=== PATIENT | male | born 1935 | race Caucasian/White ===

== ENCOUNTER 2018-07-02 13:23 | Day surgery (SDC) | payer MEDICARE, OTHER ==
[~2018-07-02 13:23] MED LIST: ALBU3IS INH; ALBU90OI INH; ALOE VERA JUICE PO; ASPI81CH; ASPI81CH PO; ASPI81EC PO; ATEN25 PO; ATEN50 PO; Arthritis Pai42.5 GM TOP; BUDE6HFA INH; CALCA500CH PO; CEPH500 PO; CHOL10002 PO; COMBIVENT RESPIM4 GM; CYCL10; DILT120 PO; DILT90 PO; DOC250 PO; FERR325 PO; GUAI600T33 PO; HYCOSAMINE; HYDACE5 PO; IBUP400 PO; INDO25 PO; KETO10 PO; LEVFLO500 PO; METF500 PO; METPRE4DP PO; MULVITB&C PO; Mucinex D 1,201 EACH; NAPR250; NITR.4SL SL; Norco 5-325 Ta1 EACH PO; OXYACE5T PO; Omeprazole20 M1 PO; PERIDEX15 ML PO; PRAV20; PRED10 PO; PRED20 PO; Percocet 5-3251 EACH PO; RANI150 PO; Robaxin500 MG PO; SALICYLATE/MENTHOL/C TOP; SIMV40 PO; TIOT18 IH; TIOT18 INH; VITAMIN B100
[2018-07-06 15:12] LABS: Performing Lab SYMBIODX; Test Name TISSUE BLOCK
== END 2018-07-02 22:52 | disposition home or self-care (01) ==
LOC: US 13:23
PROVIDERS: Internal Medicine Critical Care Medicine
DX: R22.2 Localized swelling, mass and lump, trunk (principal); C77.0 Secondary and unspecified malignant neoplasm of lymph nodes of head, face and neck
CPT/HCPCS: 38505; 76942; 88305; 88342

== ENCOUNTER 2018-09-17 11:48 | Inpatient (IN) | payer MEDICARE, OTHER ==
[~2018-09-17] VITALS: Ht 167.6 cm; Wt 70.7 kg
[~2018-09-17 11:48] MED LIST changes: -METF500 PO; +METF500C PO
[2018-09-17 12:29] LABS: BASOPHILS ABSOLUTE AUTO 0.02 K/mm3 (0.00-0.23); BASOPHILS PERCENT AUTO 0 % (0-2); EOSINOPHILS ABSOLUTE AUTO 0.11 K/mm3 (0.00-0.68); EOSINOPHILS PERCENT AUTO 1 % (0-6); Hemoglobin 12.3 g/dL (13.5-17.5); IMMATURE GRAN ABSOLUTE AUTO 0.03 K/mm3 (0.00-0.10); IMMATURE GRAN PERCENT AUTO 0 % (0-1); LYMPHOCYTES ABSOLUTE AUTO 1.29 K/mm3 (0.84-5.20); LYMPHOCYTES PERCENT AUTO 15 % (21-46); MONOCYTES ABSOLUTE AUTO 0.87 K/mm3 (0.16-1.47); MONOCYTES PERCENT AUTO 10 % (4-13); Mean Corpuscular HGB 26.2 pg (26.0-34.0); Mean Corpuscular HGB Conc 30.8 g/dL (31.5-36.5); Mean Corpuscular Volume 85 fL (80-100); Mean Platelet Volume 9.5 fL (9.1-12.4); NEUTROPHILS ABSOLUTE AUTO 6.08 K/mm3 (1.96-9.15); NEUTROPHILS PERCENT AUTO 72 % (41-73); Platelet Count 234 K/mm3 (150-400); RDW Coefficient Variation 19.7 % (11.7-14.2); RDW Standard Deviation 61.1 fL (35.1-46.3); Red Blood Cell Count 4.69 M/mm3 (4.30-5.90)
[2018-09-17 12:49] LABS: Alanine Aminotransfer (ALT/SGP 19 U/L (12-78); Albumin, Blood 3.3 g/dL (3.4-5.0); Albumin/Globulin Ratio 0.7 (0.8-1.8); Alk Phos 116 U/L (50-136); Anion Gap 7 mmol/L (6-16); Aspartate Aminotrans (AST/SGOT 14 U/L (12-37); Bilirubin, Total 0.4 mg/dL (0.1-1.0); Blood Urea Nitrogen 12 mg/dL (8-24); Bun/Creatinine Ratio 14.9 (12.0-20.0); CO2, Blood 31 mmol/L (21-32); Calcium, Blood 8.9 mg/dL (8.5-10.1); Chloride, Blood 99 mmol/L (98-108); Globulin, Blood 4.5 g/dL (2.2-4.0); Glomerular Filtration Rate >60 (60-); Glucose, Blood 113 mg/dL (70-99); Potassium, Blood 3.8 mmol/L (3.5-5.5); Sodium, Blood 137 mmol/L (136-145); Total Protein, Blood 7.8 g/dL (6.4-8.2); Troponin I <0.015 ng/mL (0.000-0.040)
[2018-09-17 19:46] LABS: International Normalized Ratio 1.05; Prothrombin Time Results 10.8 Sec (9.7-11.5)
[2018-09-17 21:11] LABS: CPK Creatine Kinase 85 U/L (39-308); Troponin I <0.015 ng/mL (0.000-0.040)
[2018-09-18 05:27] LABS: Hematocrit 35.8 % (37.0-53.0); Hemoglobin 11.3 g/dL (13.5-17.5); Mean Corpuscular HGB 26.8 pg (26.0-34.0); Mean Corpuscular HGB Conc 31.6 g/dL (31.5-36.5); Mean Corpuscular Volume 85 fL (80-100); Mean Platelet Volume 9.6 fL (9.1-12.4); Platelet Count 234 K/mm3 (150-400); RDW Coefficient Variation 19.2 % (11.7-14.2); RDW Standard Deviation 59.8 fL (35.1-46.3); Red Blood Cell Count 4.21 M/mm3 (4.30-5.90); White Blood Cell Count 6.96 K/mm3 (4.00-11.30)
[2018-09-18 05:55] LABS: Alanine Aminotransfer (ALT/SGP 13 U/L (12-78); Albumin, Blood 3.1 g/dL (3.4-5.0); Albumin/Globulin Ratio 0.7 (0.8-1.8); Alk Phos 103 U/L (50-136); Anion Gap 7 mmol/L (6-16); Aspartate Aminotrans (AST/SGOT 11 U/L (12-37); Bilirubin, Total 0.4 mg/dL (0.1-1.0); Blood Urea Nitrogen 14 mg/dL (8-24); Bun/Creatinine Ratio 17.7 (12.0-20.0); CO2, Blood 30 mmol/L (21-32); Calcium, Blood 8.7 mg/dL (8.5-10.1); Chloride, Blood 99 mmol/L (98-108); Creatinine, Blood 0.79 mg/dL (0.60-1.20); Globulin, Blood 4.4 g/dL (2.2-4.0); Glomerular Filtration Rate >60 (60-); Glucose, Blood 163 mg/dL (70-99); Potassium, Blood 4.8 mmol/L (3.5-5.5); Sodium, Blood 136 mmol/L (136-145); Total Protein, Blood 7.5 g/dL (6.4-8.2)
[2018-09-18 06:40] LABS: CPK Creatine Kinase 76 U/L (39-308); Troponin I <0.015 ng/mL (0.000-0.040)
[2018-09-18] MEDS ORDERED: GUAI600T33 PO (13:24)
[2018-09-18] MEDS ORDERED: PRAV20 PO (13:26)
[2018-09-18] MEDS ORDERED: PRED10 PO (13:36)
[2018-09-18 13:52] LABS: Source, Urine Clean Catch
[2018-09-18 14:05] LABS: Bilirubin, Urine Neg (Neg); Blood, Urine Neg (Neg); Glucose Qualitative, Urine Neg (Neg); Ketones, Urine Neg (Neg); Leukocyte Esterase, Urine Neg (Neg); Nitrite, Urine Neg (Neg); Protein, Urine Neg (Neg); Specific Gravity, Urine 1.015 (1.003-1.022); Urobilinogen, Urine NORM (Normal); pH, Urine 6.5 (5.0-8.0)
[2018-09-18 14:34] LABS: Appearance, Urine Clear (Clear); Color, Urine Yellow (P-Yellow)
[2018-09-19 05:06] LABS: BASOPHILS PERCENT AUTO 0 % (0-2); EOSINOPHILS PERCENT AUTO 0 % (0-6); Hematocrit 36.7 % (37.0-53.0); Hemoglobin 11.3 g/dL (13.5-17.5); IMMATURE GRAN ABSOLUTE AUTO 0.07 K/mm3 (0.00-0.10); IMMATURE GRAN PERCENT AUTO 1 % (0-1); LYMPHOCYTES ABSOLUTE AUTO 0.57 K/mm3 (0.84-5.20); LYMPHOCYTES PERCENT AUTO 4 % (21-46); MONOCYTES PERCENT AUTO 4 % (4-13); Mean Corpuscular HGB 26.3 pg (26.0-34.0); Mean Corpuscular HGB Conc 30.8 g/dL (31.5-36.5); Mean Corpuscular Volume 86 fL (80-100); Mean Platelet Volume 9.8 fL (9.1-12.4); NEUTROPHILS ABSOLUTE AUTO 11.92 K/mm3 (1.96-9.15); NEUTROPHILS PERCENT AUTO 91 % (41-73); Platelet Count 252 K/mm3 (150-400); RDW Coefficient Variation 19.3 % (11.7-14.2); RDW Standard Deviation 60.2 fL (35.1-46.3); Red Blood Cell Count 4.29 M/mm3 (4.30-5.90); White Blood Cell Count 13.06 K/mm3 (4.00-11.30)
[2018-09-19 05:27] LABS: Anion Gap 8 mmol/L (6-16); Blood Urea Nitrogen 18 mg/dL (8-24); Bun/Creatinine Ratio 22.9 (12.0-20.0); CO2, Blood 29 mmol/L (21-32); Chloride, Blood 102 mmol/L (98-108); Creatinine, Blood 0.79 mg/dL (0.60-1.20); Glomerular Filtration Rate >60 (60-); Glucose, Blood 137 mg/dL (70-99); Potassium, Blood 4.4 mmol/L (3.5-5.5); Sodium, Blood 139 mmol/L (136-145)
[2018-09-19] MEDS ORDERED: ACET325 PO (14:22)
[2018-09-19] MEDS ORDERED: DOCU100 PO (14:23)
[2018-09-19] MEDS ORDERED: BISA10S PR (14:23)
[2018-09-19] MEDS ORDERED: LEVO750 PO (14:24)
[2018-09-19] MEDS ORDERED: ONDA4ODT MM (14:24)
[2018-09-19] MEDS ORDERED: XARELTO15 MG PO (14:25)
[2018-09-19] MEDS ORDERED: SACC250C PO (14:29)
== END 2018-09-19 15:00 | disposition home or self-care (01) | DRG 175 ==
LOC: ER 11:48 → MEDS 11:49 → ER 20:42 → MEDS 20:49
PROVIDERS: Emergency Medicine; Family Medicine; Internal Medicine
DX: I26.99 Other pulmonary embolism without acute cor pulmonale (principal); J96.21 Acute and chronic respiratory failure with hypoxia; R64 Cachexia; C34.90 Malignant neoplasm of unspecified part of unspecified bronchus or lung; Z99.2 Dependence on renal dialysis; J43.9 Emphysema, unspecified; E78.00 Pure hypercholesterolemia, unspecified; Z87.891 Personal history of nicotine dependence; K21.9 Gastro-esophageal reflux disease without esophagitis; K57.30 Diverticulosis of large intestine without perforation or abscess without bleeding; R10.9 Unspecified abdominal pain; Z79.84 Long term (current) use of oral hypoglycemic drugs; I10 Essential (primary) hypertension; R91.8 Other nonspecific abnormal finding of lung field; Z66 Do not resuscitate; G47.33 Obstructive sleep apnea (adult) (pediatric)
CPT/HCPCS: 36415; 70450; 71046; 71260; 74177; 80048; 80053; 81003; 82550; 82947; 83690; 84484; 85025; 85027; 85610; 85730; 90686; 93005; 93010; 94640; 94760; 96365; 96374; 96375; 96376; 99285-25; G0008; G0378; J1170; J1956; J2405; J2930; J3010; Q9967

== ENCOUNTER 2018-10-16 13:38 | Inpatient (IN) | payer OTHER, MEDICARE ==
[~2018-10-16] VITALS: Ht 167.6 cm; Wt 68.3 kg
[~2018-10-16 13:38] MED LIST changes: +ACET325 PO; +BISA10S PR; +DOCU100 PO; +LEVO750 PO; +ONDA4ODT MM; +PRAV20 PO; +SACC250C PO; +XARELTO15 MG PO
[2018-10-16 14:14] LABS: BASOPHILS ABSOLUTE AUTO 0.01 K/mm3 (0.00-0.23); BASOPHILS PERCENT AUTO 0 % (0-2); EOSINOPHILS ABSOLUTE AUTO 0.04 K/mm3 (0.00-0.68); EOSINOPHILS PERCENT AUTO 1 % (0-6); Hematocrit 18.3 % (37.0-53.0); IMMATURE GRAN ABSOLUTE AUTO 0.08 K/mm3 (0.00-0.10); IMMATURE GRAN PERCENT AUTO 1 % (0-1); LYMPHOCYTES ABSOLUTE AUTO 0.79 K/mm3 (0.84-5.20); LYMPHOCYTES PERCENT AUTO 10 % (21-46); MONOCYTES ABSOLUTE AUTO 0.51 K/mm3 (0.16-1.47); MONOCYTES PERCENT AUTO 6 % (4-13); Mean Corpuscular HGB 27.8 pg (26.0-34.0); Mean Corpuscular HGB Conc 29.5 g/dL (31.5-36.5); Mean Corpuscular Volume 94 fL (80-100); Mean Platelet Volume 9.5 fL (9.1-12.4); NEUTROPHILS ABSOLUTE AUTO 6.59 K/mm3 (1.96-9.15); NEUTROPHILS PERCENT AUTO 82 % (41-73); NRBC ABSOLUTE 0.03 K/mm3 (0.00-0.02); NRBC Auto 0.4 /100 WBC (0.0-0.2); Platelet Count 293 K/mm3 (150-400); RDW Coefficient Variation 20.1 % (11.7-14.2); RDW Standard Deviation 68.7 fL (35.1-46.3); Red Blood Cell Count 1.94 M/mm3 (4.30-5.90); White Blood Cell Count 8.02 K/mm3 (4.00-11.30)
[2018-10-16 14:16] LABS: Hemoglobin 5.4 g/dL (13.5-17.5)
[2018-10-16 14:23] LABS: Alanine Aminotransfer (ALT/SGP 12 U/L (12-78); Albumin, Blood 2.8 g/dL (3.4-5.0); Albumin/Globulin Ratio 0.8 (0.8-1.8); Alk Phos 91 U/L (50-136); Anion Gap 8 mmol/L (6-16); Aspartate Aminotrans (AST/SGOT 13 U/L (12-37); Bilirubin, Total 0.4 mg/dL (0.1-1.0); Blood Urea Nitrogen 24 mg/dL (8-24); Bun/Creatinine Ratio 30.2 (12.0-20.0); CO2, Blood 29 mmol/L (21-32); Calcium, Blood 8.4 mg/dL (8.5-10.1); Chloride, Blood 102 mmol/L (98-108); Globulin, Blood 3.4 g/dL (2.2-4.0); Glomerular Filtration Rate >60 (60-); Glucose, Blood 141 mg/dL (70-99); Potassium, Blood 4.3 mmol/L (3.5-5.5); Sodium, Blood 139 mmol/L (136-145); Total Protein, Blood 6.2 g/dL (6.4-8.2)
[2018-10-16 14:56] LABS: International Normalized Ratio 1.5; Prothrombin Time Results 15.1 Sec (9.7-11.5)
--- NOTE | 2018-10-16 19:11 | NUR ---
PATIENT ARRIVED IN ICU 9 AT 1730 AFTER RECEIVING PHONE REPORT FROM JOHNSON VAN IN ED, PATIENT ARRIVED ON STRETCHER AND WAS MOVED TO BED VIA SLIDER AND 4 ASSIST, PATIENT PLACED ON MONITOR, ARRIVED WITH ONE UNIT OF PRBCs INFUSING AT THIS TIME, AND DAUGHTER AT BEDSIDE, PATIENT C/O DISCOMFORT AT PIV SIDE ON R AC, PATIENT DENIES PAIN, SOB, CHEST PAIN/DISCOMFORT AT THIS TIME, PLACED ON 2L NC, PATIENT USES HOME O2, ALSO HAS STAGE 4 TERMINAL LUNG CANCER, NO BLEEDING NOTED, ORIENTED TO ROOM AND NEW ENVIRONMENT, CALL LIGHT IN REACH, WILL CONTINUE TO MONITOR AND GIVE REPORT TO ONCOMING PLUMBING DESIGNER.
--- NOTE | 2018-10-16 19:40 | NUR ---
ASSUME CARE: REPORT RECIEVED FROM OFF GOING RN JOEY, MONITOR INTACT SHOWING SINUS RHYTHM WITH PAC'S. HEART RATE 60'S-70'S. DR ERNANDEZ IN TO SEE. FAMILY AT BEDSIDE ATTENTIVE TO CARES. 1ST UNIT OF PRBCS INFUSING WELL. LUNG SOUNDS CLEAR WITH DECREASED SOUNDS IN THE BASES RESPIRATIONS REGULAR AND EASY AT REST WITH O2 IN PLACE AT 4L/MIN.SPO2 100%. ABDOMEN FIRM WITH BOWEL SOUNDS. VOIDS MAY URINE PER URINAL. PT IS VERY HARD OF HEARING HOWEVER IS ABLE TO COMMUNICATE WELL. REPOSITIONS SELF IN BED. CONTINUE TO MONITOR AND REPORT CHANGE IN PATIENTS CONDITION.
[2018-10-16 20:33] LABS: Hematocrit 20.1 % (37.0-53.0)
[2018-10-17 04:38] LABS: BASOPHILS ABSOLUTE AUTO 0.03 K/mm3 (0.00-0.23); BASOPHILS PERCENT AUTO 0 % (0-2); EOSINOPHILS ABSOLUTE AUTO 0.21 K/mm3 (0.00-0.68); EOSINOPHILS PERCENT AUTO 3 % (0-6); Hematocrit 22.5 % (37.0-53.0); IMMATURE GRAN ABSOLUTE AUTO 0.05 K/mm3 (0.00-0.10); IMMATURE GRAN PERCENT AUTO 1 % (0-1); LYMPHOCYTES ABSOLUTE AUTO 0.83 K/mm3 (0.84-5.20); LYMPHOCYTES PERCENT AUTO 12 % (21-46); MONOCYTES ABSOLUTE AUTO 0.72 K/mm3 (0.16-1.47); MONOCYTES PERCENT AUTO 10 % (4-13); Mean Corpuscular HGB 27.5 pg (26.0-34.0); Mean Corpuscular HGB Conc 31.1 g/dL (31.5-36.5); Mean Corpuscular Volume 88 fL (80-100); Mean Platelet Volume 8.9 fL (9.1-12.4); NEUTROPHILS ABSOLUTE AUTO 5.07 K/mm3 (1.96-9.15); NEUTROPHILS PERCENT AUTO 74 % (41-73); Platelet Count 233 K/mm3 (150-400); RDW Coefficient Variation 21.9 % (11.7-14.2); Red Blood Cell Count 2.55 M/mm3 (4.30-5.90); White Blood Cell Count 6.91 K/mm3 (4.00-11.30)
[2018-10-17 04:54] LABS: International Normalized Ratio 1.12; Prothrombin Time Results 11.5 Sec (9.7-11.5)
[2018-10-17 05:33] LABS: Alanine Aminotransfer (ALT/SGP 13 U/L (12-78); Albumin, Blood 2.6 g/dL (3.4-5.0); Albumin/Globulin Ratio 0.9 (0.8-1.8); Alk Phos 78 U/L (50-136); Anion Gap 6 mmol/L (6-16); Aspartate Aminotrans (AST/SGOT 12 U/L (12-37); Bilirubin, Total 0.7 mg/dL (0.1-1.0); Blood Urea Nitrogen 21 mg/dL (8-24); Bun/Creatinine Ratio 25.1 (12.0-20.0); CO2, Blood 31 mmol/L (21-32); Calcium, Blood 7.8 mg/dL (8.5-10.1); Chloride, Blood 102 mmol/L (98-108); Creatinine, Blood 0.84 mg/dL (0.60-1.20); Globulin, Blood 2.9 g/dL (2.2-4.0); Glomerular Filtration Rate >60 (60-); Glucose, Blood 90 mg/dL (70-99); Potassium, Blood 4.2 mmol/L (3.5-5.5); Sodium, Blood 139 mmol/L (136-145); Total Protein, Blood 5.5 g/dL (6.4-8.2)
--- NOTE | 2018-10-17 06:35 | NUR ---
SHIFT SUMMARY: RESTS QUIETLY WHEN UNDISTURBED. MONITOR INTACT SHOWING SINUS RHYTHUM HEART RATE 60'S-70'S WITH PAC'S. LUNGS COARSE/CLEAR WITH OCC HARSH COUGH. DECREASED SOUNDS IN THE BASES. O2 IN PLACE AT 4L/M. SPO2 100%,ABDOMEN SOFT WITH BOWEL SOUNDS FOUR QUADS. REPOSITIONS SELF IN BED. ON BSC CONTINUING WITH BOWEL PREP FOR SCOPE LATER TODAY. HARD OF HEARING HOWEVER COOPERATIVE TO CARES. A/O . CONTINUE TO MONITOR AND REPORT CHANGE IN PATIENT CONDITION
--- NOTE | 2018-10-17 10:49 | NUR ---
0730: CARE ASSUMED, ASSESSMENT COMPLETED. PT SITTING UP ON BSC HAVING FREQUENT BM'S SECONDARY TO BOWEL PREP. BM'S ARE LIQUID BUT REMAIN DARK RED. PT SOB WITH EXERTION , SPO2 CURRENTLY 96-97% ON 3L/NC, PT REPORTS PRODUCTIVE COUGH. PT ALERT AND ORIENTED X4, NS INFUSING AT TKO, C/O HEADACHE 01/09, DENIES CHEST PAIN/PRESSURE OR DIZZINESS, MODERATE PALLOR NOTED. 0745: MEDICATED WITH TYLENOL FOR PEREYRA. 0800: MIRALAX BOWEL PREP COMPLETED AT THIS TIME, PT REMAINS UP ON BSC. 0915: PT ASSISTED INTO BED, ATTENDS ON. LARGE AMOUNT OF DARK RED LIQUID STOOL IN BSC. PT DENIES ABDOMINAL DISCOMFORT, SOB NOTED WITH EXERTION, PT RECOVERS AFTER RESTING IN BED. SPO2 REMAINS STABLE T/O TRANSFER ON 3L/NC. AT BEDSIDE. 1100: ORTHOSTATIC VS COMPLETED EARLIER BY ILIA, STABLE. PT SLEEPING, SNORING LIGHTLY, RESPIRATIONS SHALLOW BUT UNLABORED, VSS.
--- NOTE | 2018-10-17 13:06 | NUR ---
1200: IN TOUCH WITH DR. ERNANDEZ REGARDING DARK RED COLOR OF LIQUID STOOLS, NEW ORDERS RECEIVED. MAG CITRATE ADMINISTERED PER ORDERS, PT DRINKING AT THIS TIME. 1300: PT ATE CLEAR LUNCH WITHOUT DIFFICULTY, UP TO BSC FOR AN XL RED LIQUID STOOL. PT BACK TO BED, GAIT STEADY WITH 1 PERSON SBA, PRBC INFUSION INITIATED PER DR. ERNANDEZ. SEE TRANSFUSION RECORD. VSS, PT AFEBRILE.
--- NOTE | 2018-10-17 13:23 | NUR ---
1315: VSS, PT AFEBRILE, NO S/SX TRANSFUSION REACTION 15 MINUTES AFTER PRBC INFUSION INITIATED. PT RESTING IN BED WITH EYES CLOSED, SNORING LIGHTLY. PT NOW NPO FOR SCOPE THIS AFTERNOON PER DR. ERNANDEZ.
--- NOTE | 2018-10-17 15:10 | NUR ---
1510: PT REMAINS AFEBRILE, VSS, DENIES C/O SOB, BACK PAIN, ITCHING, OR DIAPHORESIS. LS DIM IN UPPER LOBES AND RLL, SLIGHTLY COARSE IN LLL. WILL CONTINUE TO MONITOR CLOSELY. OR STAFF AT BEDSIDE FOR COLONOSCOPY.
--- NOTE | 2018-10-17 15:34 | NUR ---
1530: TRANSFUSION COMPLETED, FLUSHING NOW. TEMP 99.0, PT DENIES SOB, CHILLS, ITCHING, AND PAIN. LS DIM T/O, NO CRACKLES NOTED. RT CALLED FOR DUONEB PER DR. ERNANDEZ. VSS, AT BEDSIDE.
[2018-10-17] MEDS ORDERED: BUDE6HFA INH (15:42)
[2018-10-17] MEDS ORDERED: VITAMIN D32000 UNI1 PO (15:44)
[2018-10-17] MEDS ORDERED: METF500C PO ×2 (15:46→16:01)
[2018-10-17] MEDS ORDERED: Isosorbide Mono60 MG PO (16:05)
[2018-10-17] MEDS ORDERED: ONDA4ODT SL (16:07)
--- NOTE | 2018-10-17 16:25 | NUR ---
10/17/18 5095 Lauren Love History, Chart, Medications and Allergies reviewed before start of procedure.MAC CASE WITH DR. TREJO IN ICU 9. SEE ANESETHESIA RECORD FOR CARE
--- NOTE | 2018-10-17 16:41 | NUR ---
1600: DR. ERNANDEZ AT BEDSIDE FOR COLONOSCOPY. 1635: COLONOSCOPY COMPLETED, DR. ERNANDEZ REPORTS NO ACTIVE BLEEDING, 2 CECAL AVM'S CLIPPED, NO CAUTERY NECESSARY. VSS AT THIS TIME, PT SLEEPY BUT ROUSABLE TO VOICE. WILL CONTINUE TO MONITOR.
--- NOTE | 2018-10-17 18:40 | NUR ---
1720: PT AWAKE, ALERT AND ORIENTED X4, APPROPRIATE, VSS. PT SAT UP IN BED, TOOK PO MEDICATION WITHOUT DIFFICULTY, LIQUID DINNER TRAY GIVEN. PT DENIES PAIN, NAUSEA, OR C/O, AT THIS TIME, IS SITTING UP EATING WITH AT BEDSIDE. DENIES NEEDS. 1830: PT TOLERATED CLEAR LIQUID TRAY WELL, DENIES NAUSEA. PT ASSISTED TO BEDSIDE TO VOID, GAIT STEADY, VSS. PT'S AND GRANDDAUGHTER AT BEDSIDE, PT REMAINS A&OX4, VISITING WITH FAMILY. SCDS ON, PT DENIES OTHER NEEDS. REPORT TO ONCOMING SHIFT.
--- NOTE | 2018-10-17 19:15 | NUR ---
ASSUMED PT CARE PT IS RESTING IN BED WITH FAMILY AT BEDSIDE. ALERT AND ORIENTED. OXYGEN AT 3L VIA NC WITH OXYGEN SATURATIONS >91%. PT APPEARS TO BE [place]. VERY PLEASANT AND COOPERATIVE. SBP 100-120. HR 70-80; IRREGULAR RHYTHM. PT APPEARS COMFORTABLE AND NOT IN ANY ACUTE DISTRESS AT THIS TIME.
--- NOTE | 2018-10-17 19:45 | NUR ---
ORTHOSTATIC BLOOD PRESSURE SUPINE 102/51 SITTING UP 105/48 BLOOD PRESSURES TAKEN WITHIN 1-2 MINUTES OF CHANGE IN POSITION.
[2018-10-18 03:44] LABS: BASOPHILS ABSOLUTE AUTO 0.03 K/mm3 (0.00-0.23); BASOPHILS PERCENT AUTO 1 % (0-2); EOSINOPHILS PERCENT AUTO 3 % (0-6); Hematocrit 25.6 % (37.0-53.0); Hemoglobin 7.9 g/dL (13.5-17.5); IMMATURE GRAN ABSOLUTE AUTO 0.03 K/mm3 (0.00-0.10); IMMATURE GRAN PERCENT AUTO 1 % (0-1); LYMPHOCYTES PERCENT AUTO 11 % (21-46); MONOCYTES ABSOLUTE AUTO 0.62 K/mm3 (0.16-1.47); MONOCYTES PERCENT AUTO 10 % (4-13); Mean Corpuscular HGB 27.3 pg (26.0-34.0); Mean Corpuscular HGB Conc 30.9 g/dL (31.5-36.5); Mean Corpuscular Volume 89 fL (80-100); Mean Platelet Volume 8.6 fL (9.1-12.4); NEUTROPHILS ABSOLUTE AUTO 4.86 K/mm3 (1.96-9.15); NEUTROPHILS PERCENT AUTO 75 % (41-73); Platelet Count 223 K/mm3 (150-400); RDW Coefficient Variation 20.5 % (11.7-14.2); RDW Standard Deviation 63.6 fL (35.1-46.3); Red Blood Cell Count 2.89 M/mm3 (4.30-5.90); White Blood Cell Count 6.44 K/mm3 (4.00-11.30)
[2018-10-18 04:02] LABS: Albumin, Blood 2.5 g/dL (3.4-5.0); Anion Gap 4 mmol/L (6-16); Blood Urea Nitrogen 9 mg/dL (8-24); CO2, Blood 32 mmol/L (21-32); Calcium, Blood 7.6 mg/dL (8.5-10.1); Chloride, Blood 103 mmol/L (98-108); Creatinine, Blood 0.82 mg/dL (0.60-1.20); Glomerular Filtration Rate >60 (60-); Glucose, Blood 89 mg/dL (70-99); Magnesium, Blood 2.3 mg/dL (1.6-2.4); Phosphorus, Blood 2.9 mg/dL (2.5-4.9); Potassium, Blood 3.9 mmol/L (3.5-5.5); Sodium, Blood 139 mmol/L (136-145)
--- NOTE | 2018-10-18 07:06 | NUR ---
END OF SHIFT SUMMARY PT HAS REMAINED ON 3L OXYGEN VIA NC T/O NIGHT; OXYGEN SATURATIONS HAVE MAINTAINED >95%, EXCEPT OCCASSIONALLY HE WOULD DECREASE TO MID 80'S AND PT WOULD HAVE TO MOVE NC TO MOUTH, WHICH APPEARED EFFECTIVE. NS REMAINED INFUSING TKO. PT VOIDING T/O NIGHT UTILIZING URINAL; CLEAR, YELLOW. PT DIDN'T HAVE ANY BM'S THIS SHIFT. SBP FLUCTUATED DURING WAKE AND SLEEP CYCLES; WHILE AWAKE SBP 100-110; DURING SLEEP SBP 90-100. HGB AT 7.9 THIS AM. PT APPEARS COMFORTABLE AT THIS TIME.
--- NOTE | 2018-10-18 08:15 | NUR ---
ASSUMPTION OF CARE AND TRANSFER OF CARE Assumed care at 0700 from Veronica ORNELAS. Pt on 3 LPM NC, which is home dose of oxygen. Pt laying in bed at time of report, denies need. Shift assessment completed. Report given to Tamiko ORNELAS, who is to assume care from this point onward.
--- NOTE | 2018-10-18 09:13 | NUR ---
ASSUMPTION OF CARE PATIENT RESTING IN BED QUIETLY UPON ENTERING ROOM. PATIENT [place] CHAPTER, ALERT AND ORIENTED X 4. PATIENT DENIES PAIN AT THIS TIME. PATIENT AFEBRILE. PATIENT STATES NORMALLY HE GETS AROUND FINE AT HOME WITHOUT CANE OR WALKER. THIS NURSE AGREES WITH PREVIOUS NURSES SHIFT ASSESSMENT. PATIENT SATTING WELL ON 3 L NC. HOME DOSE OF 02. LUNG SOUNDS DIMINISHED T/O. PATIENT HAS MOIST, NONPRODUCTIVE COUGH. PATIENT IN SR WITH PACS. HR 70S TO 80S, SBP IN THE 90S. PULSES STRONG. TRACE ANKLE EDEMA NOTED. SCDS IN PLACE. ABDOMEN MODERATELY DISTENDED, TENDER, FIRM. PATIENT VOIDS INTO BEDSIDE URINAL- YELLOW URINE NOTED. SKIN WNL. NS INFUSING TKO. BED LOW, CALL LIGHT IN REACH. WILL CONTINUE TO MONITOR PATIENT FREQUENTLY THROUGHOUT SHIFT.
--- NOTE | 2018-10-18 12:31 | NUR ---
PATIENT DOING CROSS WORD PUZZLES IN BED AND WATCHING TV. PATIENT REMAINS ALERT AND ORIENTED, AFEBRILE. PATIENT HAS NO COMPLAINTS OF PAIN. PATIENT REMAINS SATTING WELL ON 3 L NC. LUNGS DIMINISHED THROUGHOUT. PATIENT HAS MOIST, OCCASIONALLY PRODUCTIVE COUGH. PATIENT REPORTS, THAT WHEN HE DOES COUGH UP PHLEGM, THAT IT IS THICK AND YELLOW IN COLOR. PATIENT REMAINS IN SR WITH OCCASIONAL PACS. HR 80S TO 90S. BP STABLE- SBP IN THE 90S. ABDOMEN MILDLY DISTENDED, SOFT, NONTENDER TO PALPATION, WITH NORMOACTIVE BS. PATIENT REPORTS THAT STOMACH IS MUCH MORE COMFORTABLE TODAY THAN YESTERDAY. NO ACTIVE BLEEDING NOTED. PATIENT CONTINUES TO VOID YELLOW URINE INTO BEDSIDE URINAL. NO OTHER ACUTE CHANGES TO NOTE ON AT THIS TIME. BED LOW, CALL LIGHT IN REACH. WILL CONTINUE TO MONITOR.
--- NOTE | 2018-10-18 13:59 | NUR ---
REPORT GIVEN TO ASSUMING NURSES CLEO AND LIEN.
--- NOTE | 2018-10-18 17:49 | NUR ---
DR. ERNANDEZ IN TO SEE PATIENT. STATED THAT HE WANTS TO USE HEPARIN AND ASSESS TOMORROW TO START XARELTO.
--- NOTE | 2018-10-18 18:03 | NUR ---
TRANSFER REPORT CALLED TO MED FLOOR RN TO ASSUME CARE OF PT. PT TRANSFERRED TO ROOM 334 VIA WHEELCHAIR, ACCOMPANIED BY COMPLIANCE VICE PRESIDENT. PT WEARING 3L/MIN O2 VIA NC AND HEPARIN GTT INFUSING PER ORDERS UPON TRANSFER. ALL BELONGINGS SENT WITH PT.
--- NOTE | 2018-10-18 18:16 | NUR ---
PATIENT ARRIVED TO THE FLOOR VIA W/C. ALERT AND ORIENTED X3, ABLE TO MAKE HIS NEEDS KNOWN. NO ACUTE CHANGES NOTED.
--- NOTE | 2018-10-19 03:25 | NUR ---
83 YEAR OLD MALE FULL CODE WITH ADVANCED LUNG CANCER DX ON JULY HAD CHEMO AND PE IN SEP 2018 CONTINUES OFF XARALTO AND ON HEPATIN GTT ADJUSTED BY PHARMACY WITH APPT PER PHARMACY WITH 1 RATE CHANGE. PT DENIES PAIN OR ACUTE DISTRESS. HAD COLONOSCOPY AND TOLERATING CLEAR LIQUID DIET WITHOUT NAUSEA. ON BASELINE 3 L WITHOUT SOB. PLEASANT AND WITHOUT COMPLAINTS.
[2018-10-19 06:55] LABS: Hematocrit 26.8 % (37.0-53.0); Hemoglobin 8.2 g/dL (13.5-17.5); Mean Corpuscular HGB 27.3 pg (26.0-34.0); Mean Corpuscular HGB Conc 30.6 g/dL (31.5-36.5); Mean Corpuscular Volume 89 fL (80-100); Mean Platelet Volume 9.3 fL (9.1-12.4); Platelet Count 233 K/mm3 (150-400); RDW Coefficient Variation 19.9 % (11.7-14.2); RDW Standard Deviation 62.4 fL (35.1-46.3); White Blood Cell Count 6.46 K/mm3 (4.00-11.30)
--- NOTE | 2018-10-19 13:48 | NUR ---
Met with Thom and his Anneliese this afternoon. He is sitting on the EOB and finishing his lunch during our visit. He has a history of lung cancer with mets currently taking immunotherapy and was planning to start radiation this past Monday but was unable to start due to his low blood pressure and rectal bleeding. COPD on home O2, HTN, anemia, hyperlipidemia, GERD, a-fib. PE (09/18) was taking xarelto for this which is currently on hold as pt has a heparin gtt running at this time. 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 Pt and report that pt is aware that he has diverticulosis and he follows dietary restrictions for the diverticulosis. He is a and his PCP is located in the [facility]. Dr. Geiger is his oncologist and Dr. Sotelo is his radiation oncologist. His reports he has received several rounds of immunotherapy and he reports minimal side effects from these cancer treatments. Pt reports currently the pain he has is located in a foot which he believes may be a gout flair. He normally takes indomethacin 25-50 mg PO Q8hr prn gout pain at home, however Dr. Duenas states that this medication is contraindicated with this recent GI bleeding. Pt was started on PO prednisone to attempt to control his gout pain. If gout pain isn't relieved by the prednisone, will contact pharmacist for any other recommendations for gout pain relief. Pt reports an occasional headache. No other symptomatic complaints at this time. Pt reports [place]. Requested and received a copy of the AD from the [place]. Copy placed on his chart and sent to Medical records for scanning into the EMR. Pt reports at this time since he is tolerating his cancer treatment and last CT scan showed improvement (per his ) that he would like to continue with his cancer treament. Discussed AD and POLST form with pt. Pt's states that they may have POLST form at home, she will check in their files when she goes home later today. She did request new POLST forms for each of them in case they do not have these forms. Pt is currently a full code. Discussed full code vs. DNR and treatment options. Pt would like to think about his code status choices and he will notify staff if he decides to change his code status. Recommend PC follow up to evaluate prednisone effects on gout pain and to address any code status changes.
--- NOTE | 2018-10-19 15:03 | NUR ---
SPOKE WITH DR. FARLEY THIS AM, HE GAVE VERBAL ORDER TO ADVANCE DIET TO SOFT, IF PT TOLERATES DIET NOW THAT PTT IS THERAPEUTIC TO RESTART XARELTO. SPOKE WITH PHARMACIST WHO REPORTED THAT XARELTO NEEDED TO BE STARTED WITHIN TWO HOURS AFTER HEPERIN INFUSION STOPPED.
--- NOTE | 2018-10-19 18:02 | NUR ---
SHIFT SUMMARY. A&OX4, PLEASANT, SBA TO CHAIR WITH FWW. HERPARIN DRIP STOPPED, PT STARTED XARELTO. PT DENIES PAIN, MILD SOB WITH EXERTION, FAST RECOVERY. NO N/V, PT TOLERATED SOFT DIET WITHOUT ISSUE. IN TO VISIT THIS AFTERNOON. NO OTHER CHANGES.
[2018-10-20 05:07] LABS: Hematocrit 27.3 % (37.0-53.0); Hemoglobin 8.5 g/dL (13.5-17.5); Mean Corpuscular HGB 27.4 pg (26.0-34.0); Mean Corpuscular HGB Conc 31.1 g/dL (31.5-36.5); Mean Corpuscular Volume 88 fL (80-100); Mean Platelet Volume 9.6 fL (9.1-12.4); Platelet Count 285 K/mm3 (150-400); RDW Coefficient Variation 18.9 % (11.7-14.2); RDW Standard Deviation 59.9 fL (35.1-46.3)
[2018-10-20 05:25] LABS: International Normalized Ratio 1.23; Prothrombin Time Results 12.8 Sec (9.7-11.5)
--- NOTE | 2018-10-20 05:41 | NUR ---
SHIFT SUMMARY PT SLEPT WELL T/O NIGHT. NO ACUTE CHANGES THIS SHIFT. AOX4. VSS. DENIES N/V OR SOB WHILE @ REST. SPO2 @ 98% ON 2.5 L NC W/ E/U BREATHING. PT REPORTED MILD UPPER ABD PAIN/DISCOMFORT LAST NIGHT BUT DENIED ANY NEED FOR MEDICATION & THIS AM PT DENIES ANY PAIN. PT TOLERATING SOFT DIET WELL. NO RECTAL BLEEDING NOTICED THIS SHIFT. CALL LIGHT IN REACH & BED IN LOWEST POSITION.
[2018-10-20] MEDS ORDERED: DELTASONE20 MG PO (11:06)
[2018-10-20] MEDS ORDERED: ONDA4ODT MM (11:07)
[2018-10-20] MEDS ORDERED: OMEPRAZOLE MAGN20 MG PO (11:08)
[2018-10-20] MEDS ORDERED: Calcium + Vita1 EACH PO (11:10)
[2018-10-20] MEDS ORDERED: XARELTO20 MG PO (11:17)
--- NOTE | 2018-10-20 11:55 | NUR ---
DISCHARGE DISCHARGE MEDICATIONS AND INSTRUCTIONS EXPLAINED TO PATIENT AND PATIENT'S FAMILY. THEY STATED UNDERSTANDING. IV REMOVED WITHOUT DIFFICULTY. BELONGINGS WITH PATIENT. PATIENT TRANSFERED TO PRIVATE VEHICLE VIA WHEELCHAIR.
== END 2018-10-20 11:54 | disposition home or self-care (01) | DRG 377 ==
LOC: ER 13:38 → ICUW 15:24 → MEDS 15:24 → ICUW 17:46 → MEDS 10-18 16:57 → ENPENDDIS 10-20 10:08 → MEDS 10-20 11:54
PROVIDERS: Internal Medicine Gastroenterology; Physician Assistant; ADMIT Family Medicine
PROC: 0W3P8ZZ Control Bleeding in Gastrointestinal Tract, Via Natural or Artificial Opening Endoscopic (ICD-10-PCS; principal; 2018-10-17 15:00)
DX: K55.21 Angiodysplasia of colon with hemorrhage (principal); J96.21 Acute and chronic respiratory failure with hypoxia; I26.99 Other pulmonary embolism without acute cor pulmonale; D62 Acute posthemorrhagic anemia; R64 Cachexia; C34.90 Malignant neoplasm of unspecified part of unspecified bronchus or lung; C79.9 Secondary malignant neoplasm of unspecified site; K57.30 Diverticulosis of large intestine without perforation or abscess without bleeding; K64.8 Other hemorrhoids; J44.9 Chronic obstructive pulmonary disease, unspecified; I10 Essential (primary) hypertension; E78.5 Hyperlipidemia, unspecified; G47.33 Obstructive sleep apnea (adult) (pediatric); E11.9 Type 2 diabetes mellitus without complications; K21.9 Gastro-esophageal reflux disease without esophagitis; Z87.891 Personal history of nicotine dependence; Z79.01 Long term (current) use of anticoagulants; Z79.84 Long term (current) use of oral hypoglycemic drugs; Z79.1 Long term (current) use of non-steroidal anti-inflammatories (NSAID); Z79.51 Long term (current) use of inhaled steroids; Z79.52 Long term (current) use of systemic steroids; Z79.899 Other long term (current) drug therapy
CPT/HCPCS: 36415; 36430; 80053; 80069; 82947; 83735; 84484; 85014; 85018; 85025; 85027; 85610; 85730; 86850; 86900; 86901; 86923; 93005; 93010; 94640; 94760; 96374; 99285-25; C9113; J1644; J7120; P9016

== ENCOUNTER → 2018-11-05 | Outpatient (CLI) | payer MEDICARE, OTHER ==
[~2018-11-05] MED LIST changes: +Calcium + Vita1 EACH PO; +DELTASONE20 MG PO; +Isosorbide Mono60 MG PO; +OMEPRAZOLE MAGN20 MG PO; +ONDA4ODT SL; +VITAMIN D32000 UNI1 PO; +XARELTO20 MG PO
[2018-11-07 14:04] LABS: Stool Occult Bld Immuno 1 Positive (NEGATIVE); Stool Occult Bld Immuno 2 Positive (NEGATIVE)
== END | disposition home or self-care (01) ==
LOC: LAB 12:05 → LAB SHORT 12:05 → EDSTATUS 11-06 11:53 → LAB SHORT 11-06 14:14
PROVIDERS: Internal Medicine Gastroenterology
DX: R10.13 Epigastric pain (principal); D62 Acute posthemorrhagic anemia
CPT/HCPCS: 82274

== ENCOUNTER 2019-06-05 09:30 | Emergency (ER) | payer MEDICARE, OTHER ==
[~2019-06-05] VITALS: Ht 167.6 cm; Wt 68.0 kg
[2019-06-05 10:47] LABS: BASOPHILS ABSOLUTE AUTO 0.02 K/mm3 (0.00-0.23); BASOPHILS PERCENT AUTO 0 % (0-2); EOSINOPHILS ABSOLUTE AUTO 0.09 K/mm3 (0.00-0.68); EOSINOPHILS PERCENT AUTO 1 % (0-6); Hematocrit 42.3 % (37.0-53.0); Hemoglobin 12.6 g/dL (13.5-17.5); IMMATURE GRAN ABSOLUTE AUTO 0.06 K/mm3 (0.00-0.10); IMMATURE GRAN PERCENT AUTO 1 % (0-1); LYMPHOCYTES ABSOLUTE AUTO 0.69 K/mm3 (0.84-5.20); LYMPHOCYTES PERCENT AUTO 6 % (21-46); MONOCYTES ABSOLUTE AUTO 0.88 K/mm3 (0.16-1.47); MONOCYTES PERCENT AUTO 7 % (4-13); Mean Corpuscular HGB Conc 29.8 g/dL (31.5-36.5); Mean Corpuscular Volume 87 fL (80-100); Mean Platelet Volume 9.2 fL (9.1-12.4); NEUTROPHILS ABSOLUTE AUTO 10.38 K/mm3 (1.96-9.15); NEUTROPHILS PERCENT AUTO 86 % (41-73); Platelet Count 268 K/mm3 (150-400); RDW Coefficient Variation 14.9 % (11.7-14.2); Red Blood Cell Count 4.85 M/mm3 (4.30-5.90); White Blood Cell Count 12.12 K/mm3 (4.00-11.30)
[2019-06-05 10:55] LABS: Alanine Aminotransfer (ALT/SGP 18 U/L (12-78); Albumin, Blood 3.4 g/dL (3.4-5.0); Albumin/Globulin Ratio 0.8 (0.8-1.8); Alk Phos 135 U/L (50-136); Anion Gap 4 mmol/L (6-16); Aspartate Aminotrans (AST/SGOT 31 U/L (12-37); Bilirubin, Total 0.5 mg/dL (0.1-1.0); Blood Urea Nitrogen 17 mg/dL (8-24); Bun/Creatinine Ratio 26.2 (12.0-20.0); CO2, Blood 40 mmol/L (21-32); Calcium, Blood 9.4 mg/dL (8.5-10.1); Chloride, Blood 92 mmol/L (98-108); Creatinine, Blood 0.65 mg/dL (0.60-1.20); Globulin, Blood 4.1 g/dL (2.2-4.0); Glomerular Filtration Rate >60 (60-); Glucose, Blood 109 mg/dL (70-99); Potassium, Blood 4.9 mmol/L (3.5-5.5); Sodium, Blood 136 mmol/L (136-145); Total Protein, Blood 7.5 g/dL (6.4-8.2)
[2019-06-05] MEDS ORDERED: Miralax17 GM PO (13:08)
== END 2019-06-05 13:32 | disposition home or self-care (01) ==
LOC: ER 09:30
PROVIDERS: Emergency Medicine
DX: K59.00 Constipation, unspecified (principal); E11.9 Type 2 diabetes mellitus without complications; C34.90 Malignant neoplasm of unspecified part of unspecified bronchus or lung; E78.5 Hyperlipidemia, unspecified; D64.9 Anemia, unspecified; K21.9 Gastro-esophageal reflux disease without esophagitis; J44.9 Chronic obstructive pulmonary disease, unspecified; G47.33 Obstructive sleep apnea (adult) (pediatric); I10 Essential (primary) hypertension; Z86.711 Personal history of pulmonary embolism; Z79.01 Long term (current) use of anticoagulants; Z79.899 Other long term (current) drug therapy; Z87.891 Personal history of nicotine dependence
CPT/HCPCS: 36415; 74018; 80053; 85025; 99283-25; J7030